=== PATIENT | female | born 2000 | race Caucasian/White ===

== ENCOUNTER 2024-06-15 11:13 | Emergency (ER) | payer OTHER, SELFPAY ==
--- NOTE | ~2024-06-15 | XR_ITS ---
CHEST RADIOGRAPH, PA AND LATERAL CLINICAL HISTORY: chest pain since 10am radiating, h/o heart attack November 2023 . COMPARISON: None available TECHNIQUE: PA and lateral views of the chest. FINDINGS The cardiomediastinal silhouette is unremarkable. The lungs are clear. Visualized osseous structures and soft tissues are unremarkable. IMPRESSION: No focal infiltrate or effusion. Reviewed, dictated and finalized at location A. WORKER
[2024-06-15 11:28] VITALS: BP 122/72; PULSE 96; RESP 19; TEMP 36.4; O2SAT 100
--- NOTE | 2024-06-15 11:28 | ECG_ITS ---
Test Date: 2024-06-15 11:35:23 Measurements Intervals [place] Rate: 93 P: 44 ME: 140 QRS: 2 QRSD: 105 T: -3 QT: 358 QTc: 446 Interpretive Statements SINUS RHYTHM INCOMPLETE RIGHT BUNDLE BRANCH BLOCK MINIMAL Q WAVES- HIGH LATERAL LEADS BORDERLINE T WAVE ABNORMALITY- ANT/INF LEADS BORDERLINE ECG No previous ECG available for comparison Electronically Signed On 06-15-2024 11:44:40 SIDEROGRAPHIST by Taye Romero D.O.
[2024-06-15 11:32] VITALS: PULSE 90; O2SAT 100
[2024-06-15 11:53] LABS: Basophils Absolute Auto 0.1 K/mm3 (0.0-0.1); Basophils Percent Auto 0.6 % (0.2-1.2); Eosinophils Absolute Auto 0.3 K/mm3 (0-0.3); Eosinophils Percent Auto 3.6 % (0-4.4); Hematocrit 35.2 % (37.0-47.0); Hemoglobin 11.7 g/dL (12.0-15.0); Immature Granulocyte Absolute 0.03 K/mm3 (0.00-0.031); Immature Granulocyte Percent A 0.3 % (0-0.5); Lymphocytes Absolute Auto 1.87 K/mm3 (0.9-3.2); Lymphocytes Percent Auto 21.7 % (18.3-44.2); Mean Corpuscular HGB Conc 33.2 g/dl (32-36); Mean Corpuscular Hemoglobin 30.3 pg (26-34); Mean Corpuscular Volume 91.2 fl (80-100); Mean Platelet Volume 9.6 fl (7.4-10.4); Monocytes Absolute Auto 0.5 K/mm3 (0.1-0.6); Monocytes Percent Auto 5.9 % (2.6-8.5); Neutrophils Absolute Auto 5.8 K/mm3 (1.3-6.7); Neutrophils Percent Auto 67.9 % (45.5-73.1); Platelet Count Result 305 k/mm3 (150-375); Red Blood Count 3.86 M/mm3 (4.2-5.4); Red Cell Distribution Width 12.4 % (11.5-14.5); White Blood Count 8.6 K/mm3 (4.5-10.0)
[2024-06-15 12:05] LABS: INR 1.1; Partial Thromboplastin Time 25.8 Seconds (22.3-36.8); Prothrombin Time 14.2 Seconds (11.1-14.7)
[2024-06-15 12:10] LABS: Alanine Aminotransferase 28 U/L (6-35); Albumin Level 4.6 g/dL (3.5-5.1); Alkaline Phosphatase 138 U/L (38-126); Anion Gap 9 mmol/L (4-12); Aspartate Amino Transferase 54 U/L (14-36); Bilirubin,Total 0.6 mg/dL (0.2-1.3); Blood Urea Nitrogen 10 mg/dL (7-17); Calcium 9.8 mg/dL (8.4-10.2); Carbon Dioxide 27 mmol/L (22-30); Chloride 104 mmol/L (98-107); Estimated CRCL calculation 160 ml/min; Estimated Glomerular Filt Rate > 60; Glucose 97 mg/dL (65-110); Potassium 3.6 mmol/L (3.4-5.0); Sodium 140 mmol/L (137-145)
[2024-06-15 12:23] LABS: NT Pro B Type Natriuretic Pept 140 pg/mL (19.9-100); Troponin I < 0.012 ng/mL (0.000-0.034)
[2024-06-15 12:47] VITALS: BP 111/69; PULSE 88; RESP 23; O2SAT 100
[2024-06-15 13:54] VITALS: BP 120/79; PULSE 72; RESP 21; O2SAT 100
--- NOTE | 2024-06-15 14:34 | ECG_ITS ---
Test Date: 2024-06-15 14:40:58 Measurements Intervals [place] Rate: 68 P: 24 ID: 135 QRS: 4 QRSD: 105 T: -5 QT: 408 QTc: 435 Interpretive Statements SINUS RHYTHM INCOMPLETE RIGHT BUNDLE BRANCH BLOCK BORDERLINE ST-T WAVE ABNORMALITY- ANT/INF LEADS BORDERLINE ECG Compared to ECG 06/15/2024 11:35:23 No significant changes Electronically Signed On 06-15-2024 14:43:19 CUSTOMER ORDER CLERK by Taye Romero D.O.
[2024-06-15 14:41] VITALS: BP 121/83; PULSE 82; RESP 20; O2SAT 99
[2024-06-15 15:07] LABS: Troponin I < 0.012 ng/mL (0.000-0.034)
--- NOTE | 2024-06-15 15:19 | ED.CHESTPAIN ---
HPI - Chest Pain General Chief Complaint: Chest Pain Stated Complaint: severe CP, abd pain Time Seen by Provider: 06/15/24 11:16 History of Present Illness HPI narrative: patient is a 23-year-old female who presents ER with chest pain. [place]. [place]. Lasted for 20 minutes and resolved when EMS arrived. 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 Patient reports during her delivery last month she had an IN and a cardiac catheterization. There is no stenting. She is on isosorbide mononitrate but she ran out of it recently. She had a stress test just couple days ago. Patient also received oral and nitro EN route and developed epigastric pain and vomiting. Patient has also been started on medication for a gastric ulcer. No diarrhea. She works at a daycare center and reports there is a GI illness going around as well. Related Data Allergies Allergy/AdvReac Type Severity Reaction Status Date / Time salmon oil Allergy Anaphylaxis Verified 06/15/24 11:31 tree nut Allergy Anaphylaxis Verified 06/15/24 11:31 Review of Systems Review of Systems: All systems reviewed & are unremarkable except as noted in HPI and below Constitutional: Constitutional: Reports no additional constitutional complaints ENT: Reports system reviewed and no additional complaints, except as documented Cardiovascular: Cardiovascular: Reports chest pain, Denies rapid heart rate and Denies radiating jaw, neck or arm pain Respiratory: Respiratory: Reports no additional respiratory complaints Gastrointestinal: Gastrointestinal: Denies abdominal pain, Denies diarrhea, Reports nausea and Reports vomiting Genitourinary: Genitourinary: Reports no additional female genitourinary complaints PMFSH Past Medical History Medical History (Updated 06/15/24 @ 15:52 by Jomar Gloria MD) Healthy female adult Surgical History Surgical History (Updated 06/15/24 @ 15:52 by Jomar Gloria MD) No history of previous surgery Exam Narrative: GENERAL: Well-appearing, well-nourished, and in no acute distress. HEAD: Normocephalic, atraumatic. ENT: Mucous membranes moist. CHEST: Clear to auscultation. No respiratory distress. HEART: Regular rate and rhythm. Normal peripheral pulses. ABDOMEN: Soft, nontender, nondistended. EXTREMITIES: Normal range of motion. No edema. SKIN: Warm, dry, no rash. NEURO: Alert and oriented x3. PSYCH: Normal mood and affect. Course Course Emergency Course: Patient resting comfortably in chest pain-free. Troponin negative x2. She reports that she just received a call from her loan operations specialist office and her stress test from 3 days ago was negative for any abnormalities. This in addition to her normal cardiac catheterization are reassuring. She reports she had a vaso spasm in this is consistent with her use of isosorbide mononitrate. She does report that her cardiology office is sending in a refill for the medication. Patient will be discharged home. Vital Signs Vital signs: Vital Signs Temperature 97.6 F 06/15/24 11:28 Pulse Rate 96 06/15/24 11:28 Respiratory Rate 19 06/15/24 11:28 Blood Pressure 122/72 06/15/24 11:28 Pulse Oximetry 100 06/15/24 11:28 Oxygen Delivery Room Air 06/15/24 11:28 Temperature 97.6 F 06/15/24 11:28 Pulse Rate 82 06/15/24 14:41 Respiratory Rate 20 06/15/24 14:41 Blood Pressure 121/83 06/15/24 14:41 Pulse Oximetry 99 06/15/24 14:41 Oxygen Delivery Room Air 06/15/24 11:32 MDM - Chest Pain Lab Data 06/15/24 11:44 06/15/24 11:44 Labs: Lab Results 06/15/24 06/15/24 Range/Units 11:44 14:37 WBC 8.6 (4.5-10.0) K/mm3 RBC 3.86 L (4.2-5.4) M/mm3 Hgb 11.7 L (12.0-15.0) g/dL Hct 35.2 L (37.0-47.0) % MCV 91.2 (80-100) fl MCH 30.3 (26-34) pg MCHC 33.2 (32-36) g/dl RDW 12.4 (11.5-14.5) % Plt Count 305 (150-375) k/mm3 MPV 9.6 (7.4-10.4) fl Immature Gran % (Auto) 0.3 (0-0.5) % Neut % (Auto) 67.9 (45.5-73.1) % Lymph % (Auto) 21.7 (18.3-44.2) % [place] % (Auto) 5.9 (2.6-8.5) % Eos % (Auto) 3.6 (0-4.4) % Baso % (Auto) 0.6 (0.2-1.2) % Lymph # (Auto) 1.87 (0.9-3.2) K/mm3 [place] # (Auto) 0.5 (0.1-0.6) K/mm3 Eos # (Auto) 0.3 (0-0.3) K/mm3 Baso # (Auto) 0.1 (0.0-0.1) K/mm3 Abs Immat Gran (auto) 0.03 (0.00-0.031) K/mm3 Absolute Neuts (auto) 5.8 (1.3-6.7) K/mm3 Absolute Nucleated RBC 0.000 (0.0-0.012) K/mm3 Nucleated RBC % 0.0 (0.0-0.2) % PT 14.2 (11.1-14.7) Seconds INR 1.1 APTT 25.8 (22.3-36.8) Seconds Sodium 140 (137-145) mmol/L Potassium 3.6 (3.4-5.0) mmol/L Chloride 104 (98-107) mmol/L Carbon Dioxide 27 (22-30) mmol/L Anion Gap 9 (4-12) mmol/L BUN 10 (7-17) mg/dL Creatinine 0.50 L (0.7-1.0) mg/dL Estim Creat Clear Calc 160 ml/min Estimated GFR > 60 (59 - ) Glucose 97 (65-110) mg/dL Calcium 9.8 (8.4-10.2) mg/dL Total Bilirubin 0.6 (0.2-1.3) mg/dL AST 54 H (14-36) U/L ALT 28 (6-35) U/L Alkaline Phosphatase 138 H (38-126) U/L Troponin I < 0.012 < 0.012 (0.000-0.034) ng/mL NT-Pro-B Natriuret Pep 140 H (19.9-100) pg/mL Total Protein 8.0 (6.3-8.2) g/dL Albumin 4.6 (3.5-5.1) g/dL Imaging Data Radiologist's impression: ITS Impressions Chest X-Ray 06/15/24 11:56 IMPRESSION: No focal infiltrate or effusion. ECG Data EKG #1: ECG completion date: 06/15/24 ECG completion time: 14:40 EKG Interpretation: normal rate (68), sinus rhythm, no ectopy, non-specific ST changes, normal QRS and RBBB ( Incomplete) Discharge Plan Discharge Clinical Impression: Chest pain Patient Disposition: Home, Self-Care Condition: Stable Instructions: Chest Pain (ED) Additional Instructions: Please return to the emergency department if you develop severe and persistent chest pain, difficulty breathing, dizziness, leg swelling or if you are coughing up blood as these can be signs of a medical emergency. Please call your doctor for a follow up appointment to determine the need for further testing. Follow-up/Referrals: UNKNOWN,DOCTOR [Primary Care Provider] - 1 Week
[2024-06-15 16:01] VITALS: BP 117/80; PULSE 86; RESP 22; TEMP 36.4; O2SAT 99
== END 2024-06-15 16:07 | disposition home or self-care (01) ==
PROVIDERS: Emergency Provider Emergency Medicine
DX: R07.9 Chest pain, unspecified (principal); I25.2 Old myocardial infarction; I45.10 Unspecified right bundle-branch block; R94.31 Abnormal electrocardiogram [ECG] [EKG]
CPT/HCPCS: 36415; 71046; 80053; 83880; 84484; 85025; 85610; 85730; 93005; 99284